=== PATIENT | female | born 1940 | race Caucasian/White ===

== ENCOUNTER 2022-03-18 09:40 | Emergency (ER) | payer MEDICARE, MEDICAID ==
[2022-03-18 10:13] LABS: #Basophils 0.1 thou/uL (0.0-0.2); #Eosinphils 0.2 thou/uL (0.0-0.7); #Lymphocytes 2.1 thou/uL (1.20-3.40); #Monocytes 0.7 thou/uL (0.11-0.59); #Neutrophils 4.2 thou/uL (1.40-6.50); %Basophils 1.5 % (0.0-1.0); %Eosinophils 2.8 % (0.0-10.0); %Lymphocytes 28.9 % (21.0-51.0); %Monocytes 9.4 % (0.0-10.0); %Neutrophils 57.4 % (42.0-75.0); Hemoglobin 14.4 g/dL (12.0-16.0); Mean Corpuscular Hemoglobin 27.7 pg (27.0-31.0); Mean Corpuscular Volume 89.2 fL (78.0-98.0); Mean Platelet Volume 10.1 fL (7.4-10.4); Platelet Count 191 thou/uL (130-400); RBC Distribution Width 13.2 % (11.5-14.5); Red Blood Cell (RBC) Count 5.21 mill/uL (4.20-5.40); White Blood Cell (WBC) Count 7.3 thou/uL (4.8-10.8)
[2022-03-18 10:16] LABS: Prothrombin Time 13.2 sec (12.0-14.7)
[2022-03-18 10:17] LABS: PTT 28.2 sec (22.9-36.1)
[2022-03-18 10:27] LABS: ALT (SGPT) Less than 7 U/L (8-55); AST (SGOT) 11 U/L (5-34); Albumin 3.6 g/dL (3.4-4.8); Alkaline Phosphatase 93 U/L (40-110); Anion Gap 13 mmol/L (10-20); BUN (Urea Nitrogen) 11 mg/dL (9.8-20.1); Bilirubin, Total 0.5 mg/dL (0.2-1.2); Calc. Creatinine Clearance 0 mL/min (70-130); Calcium 8.7 mg/dL (7.8-10.44); Carbon Dioxide 26 mmol/L (23-31); Chloride 105 mmol/L (98-107); Globulin 3.4 g/dL (2.4-3.5); Glucose 94 mg/dL (83-110); Potassium 3.8 mmol/L (3.5-5.1); Sodium 140 mmol/L (136-145)
[2022-03-18 10:44] LABS: Magnesium 1.9 mg/dL (1.6-2.6)
[2022-03-18 11:13] LABS: Phosphorus 3.8 mg/dL (2.3-4.7)
[2022-03-18] MEDS ORDERED: Aspirin Chewable 81 MG TAB ONE (11:13)
[2022-03-18 11:27] LABS: SARS-CoV-2 NAA Rapid Test Not Detected (NotDetected)
== END 2022-03-18 16:15 | disposition short-term general hospital (02) ==
LOC: MADERS 09:40
DX: R07.2 Precordial pain (principal); K82.8 Other specified diseases of gallbladder; R10.9 Unspecified abdominal pain; Z20.822 Contact with and (suspected) exposure to COVID-19; I48.91 Unspecified atrial fibrillation; I10 Essential (primary) hypertension; J44.9 Chronic obstructive pulmonary disease, unspecified; Z87.891 Personal history of nicotine dependence; Z79.899 Other long term (current) drug therapy
CPT/HCPCS: 36415; 71045; 74176; 76705; 80053; 83605; 83690; 83735; 83880; 84100; 84484; 85025; 85379; 85610; 85730; 93005; 94760

== ENCOUNTER 2022-03-24 13:55 | Outpatient (CLI) | payer MEDICARE, MEDICAID | END 2022-03-24 13:56 | disposition home or self-care (01) | LOC: MADRAD 13:55 | PROVIDERS: ATTEND Family Medicine | DX: J44.9 Chronic obstructive pulmonary disease, unspecified (principal); R06.02 Shortness of breath | CPT/HCPCS: 71046 ==